=== PATIENT | male | born 1985 | race Hispanic/Latino ===

== ENCOUNTER 2021-05-21 02:50 | Emergency (ER) | payer SELFPAY ==
[~2021-05-21] VITALS: Ht 165.1 cm; Wt 56.0 kg
[2021-05-21] MEDS ORDERED: AMOXICILLIN500 M2 PO (04:25)
[2021-05-21 04:35] VITALS: BP 121/82
== END 2021-05-21 04:42 | disposition home or self-care (01) | DRG 156 ==
LOC: ED 02:50
PROC: 09C47ZZ Extirpation of Matter from Left External Auditory Canal, Via Natural or Artificial Opening (ICD-10-PCS; principal; 2021-05-21)
DX: T16.2XXA Foreign body in left ear, initial encounter (principal); X58.XXXA Exposure to other specified factors, initial encounter